=== PATIENT | male | born 1990 | race Hispanic/Latino ===

== ENCOUNTER 2017-07-08 18:17 | Emergency (ER) | payer BC ==
--- NOTE | 2017-07-08 19:10 | RAD ---
RIGHT TOES THREE VIEWS: 07/08/17 HISTORY: Toe pain for one day. FINDINGS/IMPRESSION: No fracture or dislocation is seen. POS: [facility]
[2017-07-08] MEDS ORDERED: Sterile Water 10 ML ONE (19:11)
[2017-07-08] MEDS ORDERED: methylPREDNISolone Sod Succ/PF 125 MG/2 ML VIAL ONE (19:11)
== END 2017-07-08 19:16 | disposition home or self-care (01) ==
LOC: ERS 18:17
DX: L03.031 Cellulitis of right toe (principal); F41.9 Anxiety disorder, unspecified; F17.210 Nicotine dependence, cigarettes, uncomplicated
CPT/HCPCS: 96372; A4216; J2930

== ENCOUNTER 2017-08-19 15:46 | Emergency (ER) | payer BC ==
[2017-08-19 16:53] LABS: #Basophils 0.1 thou/uL (0.0-0.2); #Eosinphils 0.1 thou/uL (0.0-0.7); #Lymphocytes 2.7 thou/uL (1.20-3.40); #Monocytes 0.9 thou/uL (0.11-0.59); #Neutrophils 3.5 thou/uL (1.40-6.50); %Basophils 1.4 % (0.0-1.0); %Eosinophils 1.2 % (0.0-10.0); %Lymphocytes 36.7 % (21.0-51.0); %Monocytes 12.8 % (0.0-10.0); Hematocrit 45.1 % (42.0-52.0); Mean Platelet Volume 8.7 fL (7.4-10.4); Red Blood Cell (RBC) Count 4.52 mill/uL (4.70-6.10); White Blood Cell (WBC) Count 7.4 thou/uL (4.8-10.8)
[2017-08-19 17:15] LABS: Acetaminophen Less than 6.0 mcg/mL (10.0-30.0); Salicylate Less than 8.0 mg/dL (15.0-30.0)
[2017-08-19 17:16] LABS: ALT (SGPT) 25 U/L (8-55); AST (SGOT) 30 U/L (5-34); Alkaline Phosphatase 76 U/L (40-150); Anion Gap 15 mmol/L (10-20); BUN (Urea Nitrogen) 14 mg/dL (8.9-20.6); Bilirubin, Total 0.4 mg/dL (0.2-1.2); CK (CPK) 327 U/L (30-200); Calc. Creatinine Clearance 0 mL/min (70-130); Calcium 9.7 mg/dL (7.8-10.44); Carbon Dioxide 26 mmol/L (22-29); Chloride 105 mmol/L (98-107); Estimated GFR-MDRD 86; Globulin 3.4 g/dL (2.4-3.5); Protein, Total 7.9 g/dL (6.0-8.3)
[2017-08-19 17:20] LABS: Troponin I Less than 0.010 ng/mL (< 0.028)
[2017-08-19 17:24] LABS: Bilirubin Negative (Negative); Blood, Urine Negative (Negative); Glucose, Urine (Dipstick) Negative (Negative); Ketone, Urine Negative (Negative); Nitrite Negative (Negative); Protein, Urine (Dipstick) Trace mg/dL (Neg-Trace)
[2017-08-19 17:33] LABS: Amphetamine Not Detected (NotDetected); Methadone Not Detected (NotDetected); Methamphetamine Not Detected (NotDetected)
--- NOTE | 2017-09-08 13:54 | EKG ---
Test Reason : Blood Pressure : / mmHG Vent. Rate : 066 BPM Atrial Rate : 066 BPM P-R Int : 146 ms QRS Dur : 088 ms QT Int : 376 ms P-R-T Axes : 052 073 024 degrees QTc Int : 394 ms Normal sinus rhythm Possible Left atrial enlargement Borderline ECG Confirmed by ANTONINO ROSADO ([id number]) on 09/08/2017 1:53:50 PM Referred By: Confirmed By:ANTONINO ROSADO
== END 2017-08-19 18:40 | disposition home or self-care (01) ==
LOC: ERS 15:46
DX: E86.0 Dehydration (principal); I10 Essential (primary) hypertension; F17.210 Nicotine dependence, cigarettes, uncomplicated
CPT/HCPCS: 80053; 80306; 80307; 81003; 82550; 82553; 84484; 85025; 93005; 99406

== ENCOUNTER 2017-10-15 16:34 | Emergency (ER) | payer BC ==
--- NOTE | 2017-10-15 17:58 | CT ---
CT CERVICAL SPINE WITHOUT CONTRAST 10/15/17 HISTORY: Injury. COMPARISON: None. FINDINGS: No acute fracture or malalignment. The occipital condyles and odontoid process are intact. C1-2 artic ulation is normal. Mild straightening of the cervical spine may be positional. Lung apices are clear. The paraspinal soft tissues are unremarkable. IMPRESSION: No acute fracture or malalignment of the cervical spine. POS: [facility]
== END 2017-10-15 19:57 | disposition home or self-care (01) ==
LOC: ERS 16:34
DX: S16.1XXA Strain of muscle, fascia and tendon at neck level, initial encounter (principal); S29.012A Strain of muscle and tendon of back wall of thorax, initial encounter; F17.210 Nicotine dependence, cigarettes, uncomplicated; F41.9 Anxiety disorder, unspecified; V43.92XA Unspecified car occupant injured in collision with other type car in traffic accident, initial encounter
CPT/HCPCS: 72125; 99406

== ENCOUNTER 2018-01-03 16:38 | Emergency (ER) | payer BC ==
[2018-01-03 17:46] LABS: #Basophils 0.2 thou/uL (0.0-0.2); #Eosinphils 0.1 thou/uL (0.0-0.7); #Lymphocytes 2.4 thou/uL (1.20-3.40); #Monocytes 0.6 thou/uL (0.11-0.59); #Neutrophils 3.3 thou/uL (1.40-6.50); %Basophils 2.3 % (0.0-1.0); %Eosinophils 1.3 % (0.0-10.0); %Lymphocytes 36.7 % (21.0-51.0); %Monocytes 9.3 % (0.0-10.0); %Neutrophils 50.4 % (42.0-75.0); Mean Corpuscular HGB CONC 33.7 g/dL (32.0-36.0); Mean Corpuscular Hemoglobin 33.5 pg (27.0-31.0); Mean Corpuscular Volume 99.3 fl (80.0-94.0); Mean Platelet Volume 9.3 fL (7.4-10.4); Platelet Count 222 thou/uL (130-400); RBC Distribution Width 11.6 % (11.5-14.5); Red Blood Cell (RBC) Count 5.37 mill/uL (4.70-6.10); White Blood Cell (WBC) Count 6.6 thou/uL (4.8-10.8)
--- NOTE | 2018-01-03 18:04 | CT ---
BRAIN CT WITHOUT IV CONTRAST: 01/03/18 HISTORY: 27-year-old male with history of dizziness and headache. COMPARISON: 03/11/17. FINDINGS: No focal mass or midline shift. No intra or extra-axial hemorrhage. Sinuses and mastoids are clear. IMPRESSION: No acute process. No mass or bleed. Stable from prior study. POS: [facility]
[2018-01-03 18:11] LABS: Acetaminophen Less than 6.0 mcg/mL (10.0-30.0); Alcohol Less than 10 mg/dL (Less than 10); Salicylate Less than 8.0 mg/dL (15.0-30.0)
[2018-01-03 18:12] LABS: ALT (SGPT) 59 U/L (8-55); AST (SGOT) 44 U/L (5-34); Albumin 5.3 g/dL (3.5-5.0); Alkaline Phosphatase 73 U/L (40-150); Anion Gap 11 mmol/L (10-20); BUN (Urea Nitrogen) 12 mg/dL (8.9-20.6); Bilirubin, Total 1.1 mg/dL (0.2-1.2); CK (CPK) 444 U/L (30-200); Calc. Creatinine Clearance 0 mL/min (70-130); Calcium 10.2 mg/dL (7.8-10.44); Carbon Dioxide 28 mmol/L (22-29); Chloride 105 mmol/L (98-107); Estimated GFR-MDRD Greater than 90; Globulin 3.3 g/dL (2.4-3.5); Glucose 78 mg/dL (70-105); Protein, Total 8.6 g/dL (6.0-8.3); Sodium 140 mmol/L (136-145)
[2018-01-03] MEDS ORDERED: Meclizine HCl 25 MG TAB ONE (18:22)
[2018-01-03] MEDS ORDERED: Metoclopramide HCl 10 MG/2 ML VIAL ONE (18:22)
[2018-01-03 19:57] LABS: Bilirubin Negative (Negative); Blood, Urine Negative (Negative); Clarity CLEAR (Clear); Glucose, Urine (Dipstick) Negative (Negative); Leukocyte Negative (Negative); Nitrite Negative (Negative); Protein, Urine (Dipstick) Negative (Neg-Trace); Specific Gravity, Urine 1.021 (1.002-1.036)
[2018-01-03 20:07] LABS: Amphetamine Not Detected (NotDetected); Barbiturates Screen Not Detected (NotDetected); Benzodiazepine Screen Not Detected (NotDetected); Cocaine Metabolite Screen Not Detected (NotDetected); Medtox Control Line Valid? VALID (VALID); Medtox Reader # READER 1; Methadone Not Detected (NotDetected); Methamphetamine Not Detected (NotDetected); Opiate Screen Not Detected (NotDetected); Oxycodone Screen Not Detected (NotDetected); Phencyclidine (PCP) Not Detected (NotDetected); THC/Cannabinoid Screen Not Detected (NotDetected); Tricyclic Screen Not Detected (NotDetected)
--- NOTE | 2018-01-08 00:26 | EKG ---
Test Reason : Blood Pressure : / mmHG Vent. Rate : 062 BPM Atrial Rate : 062 BPM P-R Int : 160 ms QRS Dur : 098 ms QT Int : 400 ms P-R-T Axes : 052 076 022 degrees QTc Int : 406 ms Normal sinus rhythm Possible Left atrial enlargement RSR' or QR pattern in V1 suggests right ventricular conduction delay Borderline ECG Confirmed by MIROSLAVA LAWRENCE ([id number]), health editor ANIKA PLATT ([id number]) on 01/08/2018 12:25:23 AM Referred By: Confirmed By:MIROSLAVA LAWRENCE
== END 2018-01-03 21:14 | disposition home or self-care (01) ==
LOC: ERS 16:38
DX: R42 Dizziness and giddiness (principal); Z87.891 Personal history of nicotine dependence
CPT/HCPCS: 70450; 80053; 80306; 80307; 81003; 82550; 85025; 93005; 96365; J2765

== ENCOUNTER 2018-03-17 16:20 | Emergency (ER) | payer BC, OTHER | END 2018-03-17 16:45 | disposition home or self-care (01) | LOC: ERS 16:20 | DX: L03.113 Cellulitis of right upper limb (principal); G89.29 Other chronic pain; M54.9 Dorsalgia, unspecified; M54.2 Cervicalgia; Z87.891 Personal history of nicotine dependence | CPT/HCPCS: 99282 ==

== ENCOUNTER 2018-03-25 18:15 | Emergency (ER) | payer OTHER ==
[2018-03-25 19:28] LABS: #Basophils 0.1 thou/uL (0.0-0.2); #Eosinphils 0.1 thou/uL (0.0-0.7); #Lymphocytes 2.8 thou/uL (1.20-3.40); #Monocytes 0.7 thou/uL (0.11-0.59); #Neutrophils 2.5 thou/uL (1.40-6.50); %Basophils 1.7 % (0.0-1.0); %Eosinophils 1.6 % (0.0-10.0); %Lymphocytes 44.7 % (21.0-51.0); Hemoglobin 14.8 g/dL (14.0-18.0); Mean Corpuscular HGB CONC 35.6 g/dL (32.0-36.0); Mean Corpuscular Hemoglobin 33.8 pg (27.0-31.0); Mean Platelet Volume 8.8 fL (7.4-10.4); Platelet Count 197 thou/uL (130-400); RBC Distribution Width 10.9 % (11.5-14.5); Red Blood Cell (RBC) Count 4.37 mill/uL (4.70-6.10); White Blood Cell (WBC) Count 6.2 thou/uL (4.8-10.8)
[2018-03-25 19:41] LABS: ALT (SGPT) 43 U/L (8-55); AST (SGOT) 26 U/L (5-34); Albumin 4.5 g/dL (3.5-5.0); Alkaline Phosphatase 69 U/L (40-150); Anion Gap 11 mmol/L (10-20); BUN (Urea Nitrogen) 13 mg/dL (8.9-20.6); Bilirubin, Total 0.8 mg/dL (0.2-1.2); CK (CPK) 182 U/L (30-200); Calc. Creatinine Clearance 0 mL/min (70-130); Calcium 8.8 mg/dL (7.8-10.44); Carbon Dioxide 25 mmol/L (22-29); Chloride 107 mmol/L (98-107); Estimated GFR-MDRD 90; Globulin 2.8 g/dL (2.4-3.5); Glucose 91 mg/dL (70-105); Potassium 4.1 mmol/L (3.5-5.1); Protein, Total 7.3 g/dL (6.0-8.3); Sodium 139 mmol/L (136-145)
== END 2018-03-25 21:10 | disposition home or self-care (01) ==
LOC: ERS 18:15
DX: E86.0 Dehydration (principal); R55 Syncope and collapse; Z87.891 Personal history of nicotine dependence; Z79.899 Other long term (current) drug therapy
CPT/HCPCS: 80053; 82550; 85025; 93005; 96360

== ENCOUNTER 2018-04-03 14:47 | Emergency (ER) | payer OTHER, SELFPAY ==
[2018-04-03] MEDS ORDERED: Ibuprofen 200 MG TAB ONE (15:08)
== END 2018-04-03 15:37 | disposition home or self-care (01) ==
LOC: ERS 14:47
DX: J02.9 Acute pharyngitis, unspecified (principal); Z87.891 Personal history of nicotine dependence
CPT/HCPCS: 87081; 87430; 99283

== ENCOUNTER 2018-04-23 17:45 | Emergency (ER) | payer OTHER, SELFPAY ==
[2018-04-23] MEDS ORDERED: Meclizine HCl 25 MG TAB ONE (19:44)
== END 2018-04-23 20:44 | disposition home or self-care (01) ==
LOC: ERS 17:45
DX: J30.9 Allergic rhinitis, unspecified (principal); R42 Dizziness and giddiness; Z71.6 Tobacco abuse counseling; Z87.891 Personal history of nicotine dependence
CPT/HCPCS: 99406

== ENCOUNTER 2018-05-24 17:39 | Emergency (ER) | payer SELFPAY | END 2018-05-24 18:30 | disposition home or self-care (01) | LOC: ERS 17:39 | DX: B35.4 Tinea corporis (principal); Z87.891 Personal history of nicotine dependence | CPT/HCPCS: 99283 ==

== ENCOUNTER 2018-05-30 00:55 | Emergency (ER) | payer SELFPAY ==
--- NOTE | 2018-05-31 13:07 | EKG ---
Test Reason : DIZZINESS Blood Pressure : / mmHG Vent. Rate : 054 BPM Atrial Rate : 054 BPM P-R Int : 160 ms QRS Dur : 086 ms QT Int : 402 ms P-R-T Axes : 051 062 026 degrees QTc Int : 381 ms Sinus bradycardia Otherwise normal ECG Confirmed by MARK HEREDIA DO ([id number]), senior technical editor ANIKA PLATT ([id number]) on 05/31/2018 1:07:20 PM Referred By: Confirmed By:MARK HEREDIA DO
== END 2018-05-30 06:22 | disposition home or self-care (01) ==
LOC: ERS 00:55
DX: R42 Dizziness and giddiness (principal); Z87.891 Personal history of nicotine dependence
CPT/HCPCS: 93005

== ENCOUNTER 2018-06-17 22:14 | Emergency (ER) | payer SELFPAY ==
--- NOTE | 2018-06-17 22:31 | RAD ---
CHEST ONE VIEW: 06/17/18 HISTORY: Vomiting and dizziness. COMPARISON: Radiograph 2011. FINDINGS: The lungs are clear. No pneumothorax or effusion. The cardiac silhouette and mediastinal contours are within normal limits. IMPRESSION: No acute intrathoracic abnormality. POS: [facility]
[2018-06-17 22:43] LABS: #Basophils 0.1 thou/uL (0.0-0.2); #Eosinphils 0.1 thou/uL (0.0-0.7); #Lymphocytes 3.5 thou/uL (1.20-3.40); #Monocytes 0.7 thou/uL (0.11-0.59); #Neutrophils 2.8 thou/uL (1.40-6.50); %Basophils 1.4 % (0.0-1.0); %Eosinophils 1.2 % (0.0-10.0); %Lymphocytes 48.6 % (21.0-51.0); %Monocytes 10.2 % (0.0-10.0); %Neutrophils 38.6 % (42.0-75.0); Hemoglobin 15.7 g/dL (14.0-18.0); Mean Corpuscular HGB CONC 35.6 g/dL (32.0-36.0); Mean Corpuscular Volume 95.5 fL (78.0-98.0); Mean Platelet Volume 9.5 fL (7.4-10.4); Platelet Count 264 thou/uL (130-400); RBC Distribution Width 11.1 % (11.5-14.5); Red Blood Cell (RBC) Count 4.61 mill/uL (4.70-6.10); White Blood Cell (WBC) Count 7.1 thou/uL (4.8-10.8)
[2018-06-17] MEDS ORDERED: Ondansetron HCl/PF 4 MG/2 ML Vial ONE (22:59)
[2018-06-17 23:00] LABS: ALT (SGPT) 26 U/L (8-55); AST (SGOT) 24 U/L (5-34); Albumin 4.7 g/dL (3.5-5.0); Alkaline Phosphatase 73 U/L (40-150); Anion Gap 14 mmol/L (10-20); BUN (Urea Nitrogen) 12 mg/dL (8.9-20.6); Bilirubin, Total 0.4 mg/dL (0.2-1.2); CK (CPK) 176 U/L (30-200); Calc. Creatinine Clearance 0 mL/min (70-130); Calcium 9.1 mg/dL (7.8-10.44); Carbon Dioxide 22 mmol/L (22-29); Chloride 106 mmol/L (98-107); Estimated GFR-MDRD 43; Globulin 3.4 g/dL (2.4-3.5); Glucose 105 mg/dL (70-105); Potassium 4.5 mmol/L (3.5-5.1); Protein, Total 8.1 g/dL (6.0-8.3); Sodium 137 mmol/L (136-145)
[2018-06-17 23:04] LABS: Troponin I Less than 0.010 ng/mL (< 0.028)
--- NOTE | 2018-06-24 11:32 | EKG ---
Test Reason : Blood Pressure : / mmHG Vent. Rate : 083 BPM Atrial Rate : 083 BPM P-R Int : 134 ms QRS Dur : 080 ms QT Int : 338 ms P-R-T Axes : 045 073 017 degrees QTc Int : 397 ms Normal sinus rhythm Possible Left atrial enlargement Borderline ECG Confirmed by TERRELL TAYLOR, RAINE ([id number]), development editor NAVID NEFF ([id number]) on 06/24/2018 11:32:04 AM Referred By: Confirmed By:RAINE TEJADA MD
== END 2018-06-18 00:03 | disposition home or self-care (01) ==
LOC: ERS 22:14
DX: R11.2 Nausea with vomiting, unspecified (principal); F17.210 Nicotine dependence, cigarettes, uncomplicated; Z71.6 Tobacco abuse counseling
CPT/HCPCS: 71045; 80053; 82553; 84484; 85025; 93005; 94760; 96361; 96374; 99406; J2405

== ENCOUNTER 2018-07-10 23:06 | Emergency (ER) | payer SELFPAY | END 2018-07-11 00:08 | disposition home or self-care (01) | LOC: ERS 23:06 | DX: J39.9 Disease of upper respiratory tract, unspecified (principal); F17.210 Nicotine dependence, cigarettes, uncomplicated | CPT/HCPCS: 99282 ==

== ENCOUNTER 2019-02-02 18:26 | Emergency (ER) | payer OTHER, SELFPAY ==
[2019-02-02 19:19] LABS: Bilirubin Negative (Negative); Blood, Urine Negative (Negative); Clarity CLEAR (Clear); Glucose, Urine (Dipstick) Negative (Negative); Leukocyte Negative (Negative); Nitrite Negative (Negative); Protein, Urine (Dipstick) Negative (Neg-Trace); Specific Gravity, Urine 1.021 (1.002-1.036); Urobilinogen 0.2 mg/dL (0.2-1.0); pH, Urine 5.5 (5.0-9.0)
[2019-02-02 19:19] LABS: #Basophils 0.1 thou/uL (0.0-0.2); #Eosinphils 0.1 thou/uL (0.0-0.7); #Lymphocytes 2.6 thou/uL (1.20-3.40); #Monocytes 0.8 thou/uL (0.11-0.59); #Neutrophils 3.2 thou/uL (1.40-6.50); %Basophils 2.1 % (0.0-1.0); %Eosinophils 1.5 % (0.0-10.0); %Lymphocytes 37.8 % (21.0-51.0); %Monocytes 11.3 % (0.0-10.0); %Neutrophils 47.3 % (42.0-75.0); Hemoglobin 16.4 g/dL (14.0-18.0); Mean Corpuscular HGB CONC 35.5 g/dL (32.0-36.0); Mean Corpuscular Hemoglobin 33.4 pg (27.0-31.0); Mean Corpuscular Volume 93.9 fL (78.0-98.0); Mean Platelet Volume 9.5 fL (7.4-10.4); Platelet Count 198 thou/uL (130-400); RBC Distribution Width 11.3 % (11.5-14.5); Red Blood Cell (RBC) Count 4.91 mill/uL (4.70-6.10); White Blood Cell (WBC) Count 6.8 thou/uL (4.8-10.8)
[2019-02-02] MEDS ORDERED: Meclizine HCl 25 MG TAB ONE (19:20)
[2019-02-02] MEDS ORDERED: Ondansetron PF 4 MG/2 ML Vial ONE (19:20)
[2019-02-02 19:39] LABS: ALT (SGPT) 39 U/L (8-55); AST (SGOT) 21 U/L (5-34); Albumin 4.6 g/dL (3.5-5.0); Alkaline Phosphatase 68 U/L (40-150); Anion Gap 9 mmol/L (10-20); BUN (Urea Nitrogen) 13 mg/dL (8.9-20.6); Bilirubin, Total 0.8 mg/dL (0.2-1.2); Calc. Creatinine Clearance 0 mL/min (70-130); Calcium 9.6 mg/dL (7.8-10.44); Carbon Dioxide 28 mmol/L (22-29); Chloride 105 mmol/L (98-107); Estimated GFR-MDRD 84; Globulin 2.9 g/dL (2.4-3.5); Glucose 92 mg/dL (70-105); Potassium 4.2 mmol/L (3.5-5.1); Protein, Total 7.5 g/dL (6.0-8.3); Sodium 138 mmol/L (136-145)
== END 2019-02-02 20:40 | disposition home or self-care (01) ==
LOC: ERS 18:26
DX: E86.0 Dehydration (principal); R11.2 Nausea with vomiting, unspecified; F17.210 Nicotine dependence, cigarettes, uncomplicated
CPT/HCPCS: 36415; 80053; 81003; 85025; 96361; 96374; J2405; J8499

== ENCOUNTER 2019-03-13 17:05 | Emergency (ER) | payer OTHER ==
[2019-03-13] MEDS ORDERED: Fluorescein Opthalmic Strip ONE (17:11)
[2019-03-13] MEDS ORDERED: Proparacaine 0.5% Opth 15 ML BOT ONE (17:11)
== END 2019-03-13 17:40 | disposition home or self-care (01) ==
LOC: ERS 17:05
DX: T15.01XA Foreign body in cornea, right eye, initial encounter (principal); F17.210 Nicotine dependence, cigarettes, uncomplicated
CPT/HCPCS: 65222

== ENCOUNTER 2019-04-04 23:40 | Emergency (ER) | payer OTHER ==
[2019-04-05 00:20] LABS: #Basophils 0.1 thou/uL (0.0-0.2); #Eosinphils 0.1 thou/uL (0.0-0.7); #Lymphocytes 2.5 thou/uL (1.20-3.40); #Monocytes 0.6 thou/uL (0.11-0.59); #Neutrophils 2.3 thou/uL (1.40-6.50); %Basophils 1.8 % (0.0-1.0); %Eosinophils 1.1 % (0.0-10.0); %Lymphocytes 45.2 % (21.0-51.0); %Monocytes 10.7 % (0.0-10.0); %Neutrophils 41.2 % (42.0-75.0); Hemoglobin 15.7 g/dL (14.0-18.0); Mean Corpuscular HGB CONC 35.6 g/dL (32.0-36.0); Mean Corpuscular Hemoglobin 33.8 pg (27.0-31.0); Platelet Count 226 thou/uL (130-400); RBC Distribution Width 11.2 % (11.5-14.5); Red Blood Cell (RBC) Count 4.65 mill/uL (4.70-6.10); White Blood Cell (WBC) Count 5.6 thou/uL (4.8-10.8)
[2019-04-05 00:41] LABS: ALT (SGPT) 59 U/L (8-55); AST (SGOT) 62 U/L (5-34); Albumin 4.7 g/dL (3.5-5.0); Alkaline Phosphatase 73 U/L (40-150); Anion Gap 14 mmol/L (10-20); BUN (Urea Nitrogen) 15 mg/dL (8.9-20.6); Bilirubin, Total 0.7 mg/dL (0.2-1.2); CK (CPK) 2591 U/L (30-200); Calc. Creatinine Clearance 0 mL/min (70-130); Calcium 9.7 mg/dL (7.8-10.44); Carbon Dioxide 23 mmol/L (22-29); Chloride 104 mmol/L (98-107); Estimated GFR-MDRD 89; Globulin 2.9 g/dL (2.4-3.5); Glucose 105 mg/dL (70-105); Potassium 3.8 mmol/L (3.5-5.1); Protein, Total 7.6 g/dL (6.0-8.3); Sodium 137 mmol/L (136-145)
[2019-04-05 02:01] LABS: Bilirubin Negative (Negative); Blood, Urine Negative (Negative); Clarity Clear (Clear); Glucose, Urine (Dipstick) Normal (Negative); Leukocyte Negative Leu/uL (Negative); Nitrite Negative (Negative); Protein, Urine (Dipstick) Negative (Neg-Trace); Urobilinogen Normal mg/dL (Less than 2)
[2019-04-05 03:10] LABS: Troponin I 0.011 ng/mL (< 0.028)
--- NOTE | 2019-04-05 07:40 | RAD ---
RADIOGRAPH CHEST 2 VIEWS: DATE: 04/05/2019 HISTORY: 28-year-old male with chest pain FINDINGS: The lungs are clear. The cardiomediastinal silhouette and hilar shadows appear normal. There is no pl eural effusion or pneumothorax. No osseous abnormality is identified. IMPRESSION: Normal
== END 2019-04-05 03:30 | disposition home or self-care (01) ==
LOC: ERS 23:40
DX: R07.89 Other chest pain (principal); R74.8 Abnormal levels of other serum enzymes; F17.210 Nicotine dependence, cigarettes, uncomplicated
CPT/HCPCS: 36415; 71046; 80053; 81003; 82550; 84484; 85025; 85379; 93005; 96360; 96361

== ENCOUNTER 2019-09-12 09:16 | Emergency (ER) | payer BC, OTHER ==
--- NOTE | 2019-09-12 09:44 | RAD ---
3 views left third finger: 09/12/2019 COMPARISON: None HISTORY: Injury, trauma, pain FINDINGS: No fracture or dislocation. No radiopaque foreign body or subcutaneous gas. IMPRESSION: No acute findings.
[2019-09-12] MEDS ORDERED: Bupivacaine 0.5% 10 ML VIAL ONE (11:10)
== END 2019-09-12 12:10 | disposition home or self-care (01) ==
LOC: ERS 09:16
DX: S60.132A Contusion of left middle finger with damage to nail, initial encounter (principal); W23.0XXA Caught, crushed, jammed, or pinched between moving objects, initial encounter
CPT/HCPCS: J3490

== ENCOUNTER 2019-12-29 11:21 | Emergency (ER) | payer BC, OTHER | END 2019-12-29 12:21 | disposition home or self-care (01) | LOC: ERS 11:21 | DX: J06.9 Acute upper respiratory infection, unspecified (principal); F17.210 Nicotine dependence, cigarettes, uncomplicated | CPT/HCPCS: 87081; 87430; 87804; 99283 ==

== ENCOUNTER 2020-03-09 17:25 | Emergency (ER) | payer SELFPAY, OTHER ==
[2020-03-10 14:07] LABS: SARS-CoV-2 MS2 Positive; SARS-CoV-2 N Gene Negative; SARS-CoV-2 S Gene Negative; SARS-CoV-2 orf1ab Negative
== END 2020-03-09 18:20 | disposition home or self-care (01) ==
LOC: ERS 17:25
DX: R06.02 Shortness of breath (principal); Z20.828 Contact with and (suspected) exposure to other viral communicable diseases
CPT/HCPCS: 87635; 99283; U0003

== ENCOUNTER 2020-04-09 19:57 | Emergency (ER) | payer OTHER, SELFPAY ==
[2020-04-09] MEDS ORDERED: Ondansetron PF 4 MG/2 ML Vial ONE ×2 (20:33→20:34)
[2020-04-09 21:05] LABS: #Basophils 0.1 thou/uL (0.0-0.2); #Lymphocytes 1.7 thou/uL (1.20-3.40); #Monocytes 0.7 thou/uL (0.11-0.59); #Neutrophils 12.8 thou/uL (1.40-6.50); %Basophils 0.5 % (0.0-1.0); %Eosinophils 0.2 % (0.0-10.0); %Lymphocytes 11.1 % (21.0-51.0); %Monocytes 4.6 % (0.0-10.0); %Neutrophils 83.6 % (42.0-75.0); Hemoglobin 18.7 g/dL (14.0-18.0); Mean Corpuscular HGB CONC 34.6 g/dL (32.0-36.0); Mean Corpuscular Hemoglobin 33.2 pg (27.0-31.0); Mean Corpuscular Volume 95.9 fL (78.0-98.0); Mean Platelet Volume 9.5 fL (7.4-10.4); Platelet Count 340 thou/uL (130-400); RBC Distribution Width 11.6 % (11.5-14.5); Red Blood Cell (RBC) Count 5.64 mill/uL (4.70-6.10); White Blood Cell (WBC) Count 15.3 thou/uL (4.8-10.8)
[2020-04-09 21:26] LABS: ALT (SGPT) 47 U/L (8-55); AST (SGOT) 24 U/L (5-34); Albumin 5.7 g/dL (3.5-5.0); Alkaline Phosphatase 89 U/L (40-110); Anion Gap 20 mmol/L (10-20); BUN (Urea Nitrogen) 18 mg/dL (8.9-20.6); Bilirubin, Total 0.7 mg/dL (0.2-1.2); Calc. Creatinine Clearance 0 mL/min (70-130); Carbon Dioxide 24 mmol/L (22-29); Chloride 100 mmol/L (98-107); Estimated GFR-MDRD 23; Globulin 4.1 g/dL (2.4-3.5); Glucose 130 mg/dL (70-105); Potassium 5.3 mmol/L (3.5-5.1); Protein, Total 9.8 g/dL (6.0-8.3); Sodium 139 mmol/L (136-145)
[2020-04-09 21:37] LABS: Calcium 12.6 mg/dL (7.8-10.44)
[2020-04-09 23:28] LABS: Anion Gap 17 mmol/L (10-20); BUN (Urea Nitrogen) 18 mg/dL (8.9-20.6); Calc. Creatinine Clearance 0 mL/min (70-130); Carbon Dioxide 24 mmol/L (22-29); Chloride 101 mmol/L (98-107); Estimated GFR-MDRD 32; Glucose 101 mg/dL (70-105); Potassium 5.2 mmol/L (3.5-5.1); Sodium 137 mmol/L (136-145)
== END 2020-04-09 23:34 | disposition home or self-care (01) ==
LOC: ERS 19:57
DX: T67.5XXA Heat exhaustion, unspecified, initial encounter (principal); R94.4 Abnormal results of kidney function studies
CPT/HCPCS: 36415; 80053; 82550; 83605; 85025; 93005; 96374; J2405

== ENCOUNTER 2020-04-11 09:40 | Emergency (ER) | payer OTHER, SELFPAY ==
[2020-04-11 10:44] LABS: #Basophils 0.1 thou/uL (0.0-0.2); #Eosinphils 0.1 thou/uL (0.0-0.7); #Lymphocytes 1.9 thou/uL (1.20-3.40); #Monocytes 0.7 thou/uL (0.11-0.59); #Neutrophils 3.7 thou/uL (1.40-6.50); %Basophils 1.7 % (0.0-1.0); %Eosinophils 1.2 % (0.0-10.0); %Lymphocytes 29.4 % (21.0-51.0); %Neutrophils 56.8 % (42.0-75.0); Hemoglobin 16.1 g/dL (14.0-18.0); Mean Corpuscular HGB CONC 34.3 g/dL (32.0-36.0); Mean Corpuscular Volume 99.2 fL (78.0-98.0); Mean Platelet Volume 9.1 fL (7.4-10.4); Platelet Count 230 thou/uL (130-400); RBC Distribution Width 11.5 % (11.5-14.5); Red Blood Cell (RBC) Count 4.74 mill/uL (4.70-6.10); White Blood Cell (WBC) Count 6.5 thou/uL (4.8-10.8)
[2020-04-11 11:44] LABS: Anion Gap 12 mmol/L (10-20); BUN (Urea Nitrogen) 17 mg/dL (8.9-20.6); CK (CPK) 192 U/L (30-200); Calc. Creatinine Clearance 0 mL/min (70-130); Calcium 8.9 mg/dL (7.8-10.44); Carbon Dioxide 24 mmol/L (22-29); Chloride 104 mmol/L (98-107); Estimated GFR-MDRD Greater than 90; Glucose 93 mg/dL (70-105); Potassium 4.4 mmol/L (3.5-5.1); Sodium 136 mmol/L (136-145)
== END 2020-04-11 12:12 | disposition home or self-care (01) ==
LOC: ERS 09:40
DX: E86.0 Dehydration (principal); M54.5 Low back pain
CPT/HCPCS: 36415; 80048; 82550; 85025; 99284

== ENCOUNTER 2021-01-21 21:57 | Emergency (ER) | payer SELFPAY ==
[2021-01-22] MEDS ORDERED: Midazolam HCl 5 mg/ml Vial ONE (00:35)
== END 2021-01-21 23:51 | disposition home or self-care (01) ==
LOC: ERS 21:57
DX: R51.9 Headache, unspecified (principal); R42 Dizziness and giddiness; F17.210 Nicotine dependence, cigarettes, uncomplicated
CPT/HCPCS: 99283; J2250

== ENCOUNTER 2021-03-15 20:25 | Emergency (ER) | payer SELFPAY ==
[2021-03-15] MEDS ORDERED: Benzonatate 100 MG CAP ONE (21:09)
[2021-03-15] MEDS ORDERED: Ondansetron ODT 4 MG TAB ONE (21:09)
[2021-03-16 13:14] LABS: SARS-CoV-2 PCR by NAA Not Detected (NotDetected)
== END 2021-03-15 21:50 | disposition home or self-care (01) ==
LOC: ERS 20:25
DX: R50.9 Fever, unspecified (principal); R05 Cough; R11.2 Nausea with vomiting, unspecified; R11.0 Nausea; Z20.822 Contact with and (suspected) exposure to COVID-19; F17.200 Nicotine dependence, unspecified, uncomplicated
CPT/HCPCS: 99283; Q0162; U0003; U0005

== ENCOUNTER 2021-05-28 08:32 | Emergency (ER) | payer SELFPAY ==
[2021-05-28 18:40] LABS: SARS-CoV-2 PCR by NAA Not Detected (NotDetected)
== END 2021-05-28 09:40 | disposition home or self-care (01) ==
LOC: ERS 08:32
DX: R11.2 Nausea with vomiting, unspecified (principal); R19.7 Diarrhea, unspecified; F17.210 Nicotine dependence, cigarettes, uncomplicated; Z20.822 Contact with and (suspected) exposure to COVID-19
CPT/HCPCS: 99284; U0003; U0005

== ENCOUNTER 2021-06-18 18:57 | Emergency (ER) | payer SELFPAY ==
[2021-06-18] MEDS ORDERED: Ibuprofen 800 MG TAB ONE (19:33)
[2021-06-18 20:52] LABS: #Basophils 0.1 thou/uL (0.0-0.2); #Lymphocytes 1.2 thou/uL (1.20-3.40); #Monocytes 0.7 thou/uL (0.11-0.59); #Neutrophils 3.1 thou/uL (1.40-6.50); %Basophils 1.3 % (0.0-1.0); %Eosinophils 0.5 % (0.0-10.0); %Lymphocytes 23.1 % (21.0-51.0); %Monocytes 13.3 % (0.0-10.0); %Neutrophils 61.8 % (42.0-75.0); Hemoglobin 16.2 g/dL (14.0-18.0); Mean Corpuscular HGB CONC 35.7 g/dL (32.0-36.0); Mean Corpuscular Hemoglobin 34.7 pg (27.0-31.0); Mean Corpuscular Volume 97.3 fL (78.0-98.0); Mean Platelet Volume 9.7 fL (7.4-10.4); Platelet Count 191 thou/uL (130-400); RBC Distribution Width 10.9 % (11.5-14.5); Red Blood Cell (RBC) Count 4.66 mill/uL (4.70-6.10)
[2021-06-18] MEDS ORDERED: Acetaminophen 500 MG TAB ONE ×3 (21:01→21:04)
[2021-06-18] MEDS ORDERED: cefTRIAXone\\ROCEPHIN 1 GM VIAL ONE (21:03)
[2021-06-18 21:16] LABS: ALT (SGPT) 22 U/L (8-55); AST (SGOT) 21 U/L (5-34); Albumin 4.6 g/dL (3.5-5.0); Alkaline Phosphatase 84 U/L (40-110); Anion Gap 15 mmol/L (10-20); BUN (Urea Nitrogen) 13 mg/dL (8.9-20.6); Bilirubin, Total 0.2 mg/dL (0.2-1.2); Calc. Creatinine Clearance 0 mL/min (70-130); Calcium 9.6 mg/dL (7.8-10.44); Carbon Dioxide 22 mmol/L (22-29); Chloride 104 mmol/L (98-107); Globulin 3.1 g/dL (2.4-3.5); Glucose 90 mg/dL (70-105); Protein, Total 7.7 g/dL (6.0-8.3); Sodium 137 mmol/L (136-145)
== END 2021-06-18 23:27 | disposition home or self-care (01) ==
LOC: ERS 18:57
DX: J01.10 Acute frontal sinusitis, unspecified (principal); J01.00 Acute maxillary sinusitis, unspecified; E86.0 Dehydration; F17.210 Nicotine dependence, cigarettes, uncomplicated
CPT/HCPCS: 36415; 70496; 80053; 83605; 85025; 87040; J0696; J1956

== ENCOUNTER 2021-08-05 19:51 | Emergency (ER) | payer SELFPAY ==
[2021-08-06 01:56] LABS: SARS-CoV-2 PCR by NAA Not Detected (NotDetected)
== END 2021-08-05 21:28 | disposition home or self-care (01) ==
LOC: ERS 19:51
DX: R06.02 Shortness of breath (principal); F17.210 Nicotine dependence, cigarettes, uncomplicated; Z20.822 Contact with and (suspected) exposure to COVID-19
CPT/HCPCS: 71045; 93005; U0003; U0005

== ENCOUNTER 2022-12-27 12:30 | Emergency (ER) | payer SELFPAY ==
[2022-12-27] MEDS ORDERED: Dexamethasone 10 MG/ML VIAL ONE (15:04)
[2022-12-27] MEDS ORDERED: Ketorolac Tromethamine 30 MG/ML VIAL ONE (15:04)
[2022-12-27] MEDS ORDERED: Methocarbamol 1 GM in Sodium Chloride 0.9% 100 ML IVPB SCH (15:30)
== END 2022-12-27 16:51 | disposition home or self-care (01) ==
LOC: ERS 12:30
DX: S16.1XXA Strain of muscle, fascia and tendon at neck level, initial encounter (principal); M62.838 Other muscle spasm; F17.210 Nicotine dependence, cigarettes, uncomplicated
CPT/HCPCS: 72125; 96365; 96375; J1100; J1885; J2800; J3490